=== PATIENT | female | born 1960 | race Caucasian/White ===

== ENCOUNTER 2018-10-08 22:11 | Observation (INO) | payer OTHER, MEDICAID ==
[2018-10-08] MEDS ORDERED: fentaNYL 100 MCG/2 ML INJ ONE (22:24)
[2018-10-08] MEDS: fentaNYL 100 MCG/2 ML INJ IVP ONE ×2 (22:27→23:16)
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
[2018-10-08 22:34] LABS: PLATELET COUNT 309 10^3/uL (150-400)
[2018-10-08 22:42] LABS: INR 0.98 (0.83-1.16); PROTIME(PATIENT) 13.2 SEC (12.0-15.0)
[2018-10-08] MEDS ORDERED: ONDANSETRON 4 MG/2 ML VIAL IVP PRN (22:54)
[2018-10-08] MEDS ORDERED: ACETAMINOPHEN 325 MG TAB PO PRN (22:54)
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
[2018-10-08] MEDS ORDERED: D5W 1/2 NS 1,000 ML IV SCH (23:00)
[2018-10-08] MEDS ORDERED: fentaNYL 100 MCG/2 ML INJ IVP ONE (23:04)
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
[2018-10-09] MEDS: HYDROCODONE/APAP 5/325 TAB PO PRN ×4 (00:27→20:12)
[2018-10-09 05:33] LABS: PLATELET COUNT 276 10^3/uL (150-400)
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
[2018-10-09] MEDS ORDERED: IBUPROFEN 600 MG TAB PO PRN (07:03)
[2018-10-09] MEDS: DIAZEPAM 5 MG TAB PO PRN ×3 (10:03→22:23)
[2018-10-09] MEDS: KETOROLAC 15 MG/1 ML SDV IVP PRN ×3 (10:19→22:22)
[2018-10-09 12:16] LABS: PLATELET COUNT 248 10^3/uL (150-400)
[2018-10-09] MEDS ORDERED: TEARS/DEXTRAN 70/HYPROMELLOSE 15 ML OPHT.BTL EACHEYE PRN (12:49)
[2018-10-09] MEDS ORDERED: DIAZEPAM 2 MG TAB PO PRN (12:49)
[2018-10-09] MEDS: TOPIRAMATE 100 MG TAB PO SCH ×2 (13:54→20:09)
[2018-10-09] MEDS: levETIRAcetam 500 MG TAB PO SCH ×2 (13:55→20:09)
[2018-10-09] MEDS: LEVOTHYROXINE 125 MCG TAB PO SCH (13:55)
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
[2018-10-09 18:00] LABS: PLATELET COUNT 284 10^3/uL (150-400)
[2018-10-09] MEDS ORDERED: ROSUVASTATIN CALCIUM 10 MG TAB PO SCH (21:00)
[2018-10-10] MEDS: LEVOTHYROXINE 125 MCG TAB PO SCH (05:18)
[2018-10-10] MEDS: HYDROCODONE/APAP 5/325 TAB PO PRN ×2 (05:20→13:25)
[2018-10-10] MEDS: TOPIRAMATE 100 MG TAB PO SCH (08:41)
[2018-10-10] MEDS: levETIRAcetam 500 MG TAB PO SCH (08:42)
[2018-10-10] MEDS: KETOROLAC 15 MG/1 ML SDV IVP PRN (08:47)
[2018-10-10] MEDS: DIAZEPAM 5 MG TAB PO PRN (08:47)
[2018-10-10] MEDS ORDERED: MAGNESIUM OXIDE 400 MG TAB PO SCH (09:00)
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
[2018-10-10 11:41] VITALS: BP 111/62
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
--- NOTE | 2018-10-10 15:00 | ASMTLACE ---
PEMA Length of stay for Answers: 2 days current admission Acuity / Level of Answers: No Care: Did the patient have an inpatient admission? Comorbidities - select Answers: Other Notes: Hx of seziures all that apply # of Emergency department Answers: 1-2 visits in the last 6 months Social determinants Answers: History of substance abuse (ETOH, street drugs, prescription drugs, etc.) Score: 7 Date Signed: 10/10/2018 03:00 PM Electronically Signed By:Deana Robbins RN
--- NOTE | 2018-10-10 15:06 | ASMTCMCOM ---
CM Note CM Note Notes: Met with pt and gave resources for therapists near [place]. Also gave information to Jessica at [facility] to follow up. DC Plan: Independent Date Signed: 10/10/2018 03:05 PM Electronically Signed By:Deana Robbins RN
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
== END 2018-10-10 14:19 | disposition home or self-care (01) ==
LOC: F3E 10-09 01:05
PROVIDERS: ADMIT Surgery; ATTEND Surgery
DX: S13.8XXA Sprain of joints and ligaments of other parts of neck, initial encounter (principal); S06.0X9A Concussion with loss of consciousness of unspecified duration, initial encounter; S20.212A Contusion of left front wall of thorax, initial encounter; V49.3XXA Car occupant (driver) (passenger) injured in unspecified nontraffic accident, initial encounter; Y93.89 Activity, other specified; Y92.014 Private driveway to single-family (private) house as the place of occurrence of the external cause; T51.0X1A Toxic effect of ethanol, accidental (unintentional), initial encounter; Y90.6 Blood alcohol level of 120-199 mg/100 ml; F10.229 Alcohol dependence with intoxication, unspecified; F17.210 Nicotine dependence, cigarettes, uncomplicated; M47.892 Other spondylosis, cervical region
CPT/HCPCS: 70450; 70551; 71045; 71260; 72125; 72129; 72132; 72141; 72170; 74177; 92507; 92523; 97116; 97162; 97166; 97535; G0378; 80305; 96374; G0480; J1885; J2270; J2405; J3010; L0172

== ENCOUNTER → 2018-11-05 | Outpatient (CLI) | payer OTHER, MEDICAID | LOC: FIMAGING 12:37 | PROVIDERS: ATTEND Neurological Surgery | DX: M47.892 Other spondylosis, cervical region (principal) ==

== ENCOUNTER → 2018-11-24 | Outpatient (CLI) | payer OTHER, MEDICAID | LOC: FIMAGING 13:11 | PROVIDERS: ATTEND Physician Assistant | DX: M50.30 Other cervical disc degeneration, unspecified cervical region (principal) ==

== ENCOUNTER → 2018-11-28 | Outpatient (CLI) | payer OTHER, MEDICAID | LOC: FIMAGING 17:53 | PROVIDERS: ATTEND Physician Assistant | DX: M47.892 Other spondylosis, cervical region (principal); M53.82 Other specified dorsopathies, cervical region; M48.02 Spinal stenosis, cervical region ==